=== PATIENT | male | born 1940 | race Caucasian/White ===

== ENCOUNTER → 2018-05-28 | Outpatient (CLI) | payer MEDICARE ==
[~2018-05-28] MED LIST: ALTACE5 MG PO; AMARYL4 MG PO; ASPIR 8181 MG PO; ATORVASTATIN CA20 MG PO; CALCIUM 600 +1 EAC8 PO; CO Q-10200 MG PO; ELIQUIS PO; LEVEMIR100 UNIT/1 SQ; LISINOPRIL10 MG PO; METOPROLOL SUCC50 MG PO; METOPROLOL TART50 MG PO; MULTI FOR HIM1 EACH; MULTIVITAMINS1 EAC4 PO; NEURONTIN300 MG PO; NORVASC10 MG PO; NOVOLOG 70-30 SC; OYSTER SHELL 51 EACH PO; PROCARDIA XL30 MG PO; SIMVASTATIN40 MG PO; TRADJENTA5 MG PO; VITAMIN C1000 M1 PO
--- NOTE | 2018-05-28 11:57 | Diagnostic Imaging Report ---
PROCEDURE: CT ABDOMEN AND PELVIS WITHOUT CONTRAST COMPARISON:[facility], CT, CT ABDOMEN/PELVIS WO, 10/29/2016, 13:35. INDICATIONS:CALCULUS OF KIDNEY; history of bladder cancer 10 years ago, started bleeding 2 weeks ago TECHNIQUE: Axial CT images through the abdomen and pelvis were obtained from the lung bases through the symphysis pubis without intravenous contrast. Coronal and sagittal reformations were created. DLP: 760.32 mGY-cm FINDINGS: Right kidney: Measures approximately 8.8 cm in length. The cortex is mildly lobulated. There are 2 calculi in the upper pole, the larger measuring 4 mm. No hydronephrosis. An exophytic low attenuating lesion measures 9 mm is likely a cyst. Left kidney: Measures 11 cm in length. The cortex is mildly lobulated. There is a pixel/calculus in the upper pole. No hydronephrosis. Bladder/ureters: The ureters are normal in diameter throughout their course without evidence of calculus. The bladder contains a high attenuating mass (50 Hounsfield units) in the dependent portion measuring 5.0 x 5.8 x 6.2 cm. The bladder sarkar are not thickened. There are no intraluminal calculi. Prostate gland: Measures 5.2 x 6.5 cm in the axial plane (previously, 5.3 x 6.4 cm). Seminal vesicles are normal in morphology. Lung bases: The punctate calcified granulomata in the right posterior costophrenic angle are stable. Subpleural bands in the lower lobes, right lung more severe than left are stable. There is diffuse hyperinflation suggestive of small airways disease. Valvular and coronary artery calcifications are present in the heart. Liver: Normal attenuation. No soft tissue mass. A punctate calcified granuloma is in segment 6. Spleen: Normal size and attenuation. No mass. Biliary: The gallbladder is normal. No biliary ductal dilatation. Pancreas: No mass or ductal dilatation. A tiny calcification is in the inferior head and is stable. Adrenal Glands: No mass. Vasculature: Diffuse calcifications throughout the arterial structures. The aorta with diameter. The iliac arteries are ectatic. There is a retroaortic left renal vein. GI: The stomach is normal. Small bowel and large bowel are normal in diameter and wall thickness. Postoperative changes of the right colon are stable with ileocolic anastomosis. Diverticulosis coli is present no associated inflammation. Peritoneum/Retroperitoneum: No free fluid or fluid collection. MSK: Stable degenerative changes of the spine. No compression deformities. The no lytic or blastic lesions. The soft tissues are unremarkable. CONCLUSION: 1. High attenuating intraluminal mass in the bladder is highly suggestive of blood clot. Underlying tumor is suspected. Recommend evaluation of the bladder with cystoscopy. 2. Stable prostate hypertrophy. 3. Tiny intrarenal calculi as described above. No obstructive uropathy. No CT evidence of recent stone passage. 4. Diverticulosis coli. Stable postoperative changes of the large bowel. Dictated by: Az Arzola M.D. on 05/28/2018 at 12:02 Electronically approved by: Az Arzola M.D. on 05/28/2018 at 12:02
== END ==
LOC: CT 10:43
PROVIDERS: ATTEND Urology
DX: N20.0 Calculus of kidney (principal)
CPT/HCPCS: 74176

== ENCOUNTER 2018-05-29 14:54 | Inpatient (IN) | payer MEDICARE ==
[~2018-05-29] VITALS: Ht 182.9 cm; Wt 102.7 kg
[~2018-05-29 14:54] MED LIST changes: -ATORVASTATIN CA20 MG PO; -CO Q-10200 MG PO; -ELIQUIS PO; -LISINOPRIL10 MG PO; -METOPROLOL TART50 MG PO; -NOVOLOG 70-30 SC
[2018-05-29] MEDS ORDERED: SODIUM CHLORIDE 0.9% 1000ML 1,000 ML IV STA (15:45)
[2018-05-29 15:57] LABS: CLARITY,URINE TURBID (CLEAR); COLOR,URINE RED (YELLOW); KETONES,URINE TRACE (NEGATIVE); LEUKOCYTE ESTERASE ,URINE TRACE (NEGATIVE); NITRITE,URINE POSITIVE (NEGATIVE); PROTEIN,URINE DIPSTICK 2+ (NEGATIVE)
[2018-05-29 15:58] LABS: BILIRUBIN,URINE 2+ (NEGATIVE); URINE UROBILINOGEN 1 mg/dL (0.2 - 1)
[2018-05-29 16:05] LABS: BACTERIA,URINE MODERATE /HPF; RBC,URINE >50 /HPF (0-5)
[2018-05-29 16:25] LABS: BASOPHILS % 0.5 % (0.0-1.0); EOSINOPHILS # (AUTO) 0.4 (0.0-0.4); EOSINOPHILS % 4.5 % (0.0-6.0); HEMATOCRIT 42.1 % (38.2-49.6); HEMOGLOBIN 14.4 g/dL (14.0-18.0); LYMPHOCYTES # (AUTO) 1.9 (1.0-3.2); LYMPHOCYTES % 23.2 % (18.0-39.1); MEAN CORPUSCULAR HEMOGLOBIN 31.4 pg (28-32); MEAN CORPUSCULAR HGB CONC 34.2 g/dL (31-35); MEAN CORPUSCULAR VOLUME 91.7 fL (81-99); MONOCYTES # (AUTO) 0.7 (0.2-0.8); MONOCYTES % 8.9 % (4.4-11.3); NEUTROPHILS % 62.7 % (38.7-80.0); PLATELET COUNT 192 x10e3/uL (140-360); RED BLOOD COUNT 4.59 x10e6/uL (4.3-5.7); RED CELL DISTRIBUTION WIDTH 12.9 % (11.7-14.4)
[2018-05-29 16:29] LABS: INR 1.07; PROTHROMBIN TIME 13.1 seconds (11.9-14.5)
[2018-05-29 16:30] LABS: PARTIAL THROMBOPLASTIN TIME 34.8 seconds (23.8-35.5)
[2018-05-29 16:39] LABS: ALBUMIN/GLOBULIN RATIO 1.3 (0.8-2.0); ANION GAP 12.2 mmol/L (8-16); CALCIUM 9.6 mg/dL (8.4-10.2); CREATININE, SERUM 1.82 mg/dL (0.72-1.25); POTASSIUM 4.2 mmol/L (3.5-5.1)
[2018-05-29] MEDS ORDERED: LIDOCAINE JELLY 2% 10ML URO-JET TOP ONE (16:45)
[2018-05-29] MEDS: CEFTRIAXONE SOD 1 GM VIAL IV SCH (17:00)
[2018-05-29] MEDS ORDERED: SODIUM CHLORIDE 0.9% 1000ML 1,000 ML IV SCH (17:19)
[2018-05-29] MEDS ORDERED: ATORVASTATIN CA20 MG PO (17:24)
[2018-05-29] MEDS ORDERED: METOPROLOL TART50 MG PO (17:24)
[2018-05-29] MEDS ORDERED: CO Q-10200 MG PO (17:24)
[2018-05-29] MEDS ORDERED: ELIQUIS PO (17:24)
[2018-05-29] MEDS ORDERED: LISINOPRIL10 MG PO (17:24)
[2018-05-29] MEDS ORDERED: NOVOLOG 70-30 SC ×2 (17:24)
[2018-05-29] MEDS ORDERED: MORPHINE SULFATE 2 MG/ML SYR IV PRN (17:30)
[2018-05-29] MEDS ORDERED: ONDANSETRON HCL INJ 2 MG/ML VIAL IV PRN (17:30)
[2018-05-29] MEDS ORDERED: MORPHINE SULFATE INJ 4 MG/ML INJ IV PRN (17:45)
[2018-05-29 20:00] VITALS: BP 160/88
[2018-05-29 20:45] VITALS: BP 160/88
[2018-05-29 21:00] VITALS: BP 160/88
[2018-05-30 00:20] VITALS: BP 190/86
[2018-05-30] MEDS: DEXTROSE 5%/0.45% SOD CHL 1,000 ML IV SCH ×2 (00:55→15:38)
[2018-05-30 04:20] VITALS: BP 166/86
[2018-05-30 05:28] LABS: BASOPHILS % 0.5 % (0.0-1.0); EOSINOPHILS # (AUTO) 0.2 (0.0-0.4); EOSINOPHILS % 2.3 % (0.0-6.0); HEMATOCRIT 39.1 % (38.2-49.6); HEMOGLOBIN 13.4 g/dL (14.0-18.0); LYMPHOCYTES # (AUTO) 1.5 (1.0-3.2); LYMPHOCYTES % 17.8 % (18.0-39.1); MEAN CORPUSCULAR HEMOGLOBIN 31.5 pg (28-32); MEAN CORPUSCULAR HGB CONC 34.3 g/dL (31-35); MEAN CORPUSCULAR VOLUME 91.8 fL (81-99); MONOCYTES # (AUTO) 0.7 (0.2-0.8); MONOCYTES % 8.4 % (4.4-11.3); NEUTROPHILS # (AUTO) 5.8 (2.1-6.9); NEUTROPHILS % 70.8 % (38.7-80.0); PLATELET COUNT 157 x10e3/uL (140-360); RED BLOOD COUNT 4.26 x10e6/uL (4.3-5.7); RED CELL DISTRIBUTION WIDTH 12.7 % (11.7-14.4)
[2018-05-30 05:42] LABS: ANION GAP 11.5 mmol/L (8-16); CALCIUM 8.8 mg/dL (8.4-10.2); CREATININE, SERUM 1.65 mg/dL (0.72-1.25); POTASSIUM 4.5 mmol/L (3.5-5.1)
[2018-05-30 08:16] VITALS: BP 178/83
[2018-05-30] MEDS: INSULIN ASPART 70/30 100 UNITS/ML VIAL SC SCH ×2 (09:00→21:00)
[2018-05-30] MEDS: METOPROLOL TARTRATE 50 MG TAB PO SCH ×2 (09:00→17:12)
[2018-05-30] MEDS: LISINOPRIL 10 MG TAB PO SCH (09:00)
[2018-05-30] MEDS: GABAPENTIN 300 MG CAP PO SCH ×2 (09:00→17:12)
[2018-05-30 16:56] VITALS: BP 184/89
[2018-05-30] MEDS: CEFTRIAXONE SOD 1 GM VIAL IV SCH (18:00)
[2018-05-30 20:06] VITALS: BP 189/99
[2018-05-30] MEDS: ATORVASTATIN 20 MG TAB PO SCH (21:09)
[2018-05-30] MEDS: HYDRALAZINE HCL 20 MG/ML VIAL IV PRN (23:25)
[2018-05-31] VITALS (9 sets, daily range): BP systolic 123–195; BP diastolic 63–127
[2018-05-31 04:45] LABS: BASOPHILS # (AUTO) 0.1 (0.0-0.1); BASOPHILS % 0.5 % (0.0-1.0); EOSINOPHILS # (AUTO) 0.2 (0.0-0.4); EOSINOPHILS % 2.6 % (0.0-6.0); HEMATOCRIT 40.7 % (38.2-49.6); HEMOGLOBIN 13.9 g/dL (14.0-18.0); LYMPHOCYTES # (AUTO) 1.4 (1.0-3.2); LYMPHOCYTES % 14.9 % (18.0-39.1); MEAN CORPUSCULAR HEMOGLOBIN 31.6 pg (28-32); MEAN CORPUSCULAR HGB CONC 34.2 g/dL (31-35); MEAN CORPUSCULAR VOLUME 92.5 fL (81-99); MONOCYTES # (AUTO) 0.9 (0.2-0.8); MONOCYTES % 9.8 % (4.4-11.3); NEUTROPHILS # (AUTO) 6.5 (2.1-6.9); NEUTROPHILS % 71.9 % (38.7-80.0); PLATELET COUNT 173 x10e3/uL (140-360); RED CELL DISTRIBUTION WIDTH 12.7 % (11.7-14.4)
[2018-05-31 05:05] LABS: ANION GAP 13.3 mmol/L (8-16); CALCIUM 9.1 mg/dL (8.4-10.2); CREATININE, SERUM 1.61 mg/dL (0.72-1.25); POTASSIUM 4.3 mmol/L (3.5-5.1)
[2018-05-31] MEDS: DEXTROSE 5%/0.45% SOD CHL 1,000 ML IV SCH (05:21)
[2018-05-31] MEDS: LISINOPRIL 10 MG TAB PO SCH (08:54)
[2018-05-31] MEDS: GABAPENTIN 300 MG CAP PO SCH ×2 (08:54→17:09)
[2018-05-31] MEDS: METOPROLOL TARTRATE 50 MG TAB PO SCH ×2 (08:54→17:09)
[2018-05-31] MEDS: INSULIN ASPART 70/30 100 UNITS/ML VIAL SC SCH ×2 (09:00→21:00)
[2018-05-31] MEDS: CEFTRIAXONE SOD 1 GM VIAL IV SCH (17:09)
[2018-05-31] MEDS: HYDRALAZINE HCL 20 MG/ML VIAL IV PRN (17:09)
[2018-05-31] MEDS: GENTAMICIN 80MG/NS 100 ML 100 ML IV SCH (17:26)
[2018-05-31] MEDS: ATORVASTATIN 20 MG TAB PO SCH (21:10)
[2018-06-01] VITALS (8 sets, daily range): BP systolic 121–188; BP diastolic 62–89
[2018-06-01] MEDS: DEXTROSE 5%/0.45% SOD CHL 1,000 ML IV SCH ×2 (00:41→09:29)
[2018-06-01] MEDS: GENTAMICIN 80MG/NS 100 ML 100 ML IV SCH ×2 (03:57→17:11)
[2018-06-01] MEDS: HYDRALAZINE HCL 20 MG/ML VIAL IV PRN (04:20)
[2018-06-01 06:00] LABS: BASOPHILS % 0.4 % (0.0-1.0); EOSINOPHILS # (AUTO) 0.3 (0.0-0.4); EOSINOPHILS % 2.9 % (0.0-6.0); HEMATOCRIT 40.5 % (38.2-49.6); HEMOGLOBIN 14.1 g/dL (14.0-18.0); MEAN CORPUSCULAR HEMOGLOBIN 31.8 pg (28-32); MEAN CORPUSCULAR HGB CONC 34.8 g/dL (31-35); MEAN CORPUSCULAR VOLUME 91.2 fL (81-99); MONOCYTES # (AUTO) 0.9 (0.2-0.8); MONOCYTES % 9.2 % (4.4-11.3); NEUTROPHILS # (AUTO) 6.7 (2.1-6.9); NEUTROPHILS % 67.2 % (38.7-80.0); PLATELET COUNT 188 x10e3/uL (140-360); RED BLOOD COUNT 4.44 x10e6/uL (4.3-5.7); RED CELL DISTRIBUTION WIDTH 12.8 % (11.7-14.4)
[2018-06-01 06:27] LABS: ANION GAP 13.6 mmol/L (8-16); CALCIUM 8.9 mg/dL (8.4-10.2); CREATININE, SERUM 1.57 mg/dL (0.72-1.25); POTASSIUM 3.6 mmol/L (3.5-5.1)
[2018-06-01] MEDS ORDERED: IOPAMIDOL 300MG/ML 50ML INFUS..BTL IV ONE (06:41)
[2018-06-01] MEDS ORDERED: FENTANYL CITRATE/PF 100MCG/2 ML INJ ONE ×2 (08:10→14:49)
[2018-06-01] MEDS: PHENAZOPYRIDINE HCL 100 MG TAB PO SCH ×3 (08:58→17:11)
[2018-06-01] MEDS: GABAPENTIN 300 MG CAP PO SCH ×2 (08:58→17:11)
[2018-06-01] MEDS: INSULIN ASPART 70/30 100 UNITS/ML VIAL SC SCH ×3 (08:59→18:13)
[2018-06-01] MEDS: LISINOPRIL 10 MG TAB PO SCH (09:29)
[2018-06-01] MEDS: METOPROLOL TARTRATE 50 MG TAB PO SCH ×2 (09:29→17:11)
[2018-06-01] MEDS ORDERED: LIDOCAINE HCL 2% LOCAL INJ 5 ML SDV VIAL INJ ONE (13:57)
[2018-06-01] MEDS ORDERED: PROPOFOL IV EMULSION 10 MG/ML 20 ML VIAL IV ONE (13:57)
[2018-06-01] MEDS ORDERED: ONDANSETRON HCL INJ 2 MG/ML VIAL IV ONE (13:57)
[2018-06-01] MEDS ORDERED: EPHEDRINE SULFATE INJ 50 MG/10 ML SYR IV ONE (13:57)
[2018-06-01] MEDS ORDERED: DEXAMETHASONE SOD PHOS INJ 4 MG/ML VIAL IV ONE (13:57)
[2018-06-01] MEDS ORDERED: SEVOFLURANE INHAL SOLN 250 ML PEN BTL INH ONE (13:57)
[2018-06-01] MEDS ORDERED: MIDAZOLAM HCL 2 MG/2 ML VIAL ONE (14:49)
[2018-06-01] MEDS: CEFTRIAXONE SOD 1 GM VIAL IV SCH (17:11)
[2018-06-01] MEDS ORDERED: DEXTROSE 50% SYRINGE 50 ML IV PRN (18:00)
[2018-06-01] MEDS: INSULIN REGULAR, HUMAN 100 UNIT/1 ML 3ML VIAL SQ SCH (21:04)
[2018-06-01] MEDS: ATORVASTATIN 40 MG TAB PO SCH (21:04)
[2018-06-02] VITALS (7 sets, daily range): BP systolic 118–165; BP diastolic 57–95
[2018-06-02] MEDS: GENTAMICIN 80MG/NS 100 ML 100 ML IV SCH ×2 (03:48→16:13)
[2018-06-02] MEDS: DEXTROSE 5%/0.45% SOD CHL 1,000 ML IV SCH ×2 (03:48→16:12)
[2018-06-02 04:38] LABS: BASOPHILS % 0.1 % (0.0-1.0); HEMATOCRIT 37.8 % (38.2-49.6); HEMOGLOBIN 12.6 g/dL (14.0-18.0); LYMPHOCYTES # (AUTO) 1.1 (1.0-3.2); LYMPHOCYTES % 7.4 % (18.0-39.1); MEAN CORPUSCULAR HEMOGLOBIN 31.6 pg (28-32); MEAN CORPUSCULAR HGB CONC 33.3 g/dL (31-35); MEAN CORPUSCULAR VOLUME 94.7 fL (81-99); MONOCYTES # (AUTO) 1.1 (0.2-0.8); MONOCYTES % 7.4 % (4.4-11.3); NEUTROPHILS # (AUTO) 12.8 (2.1-6.9); NEUTROPHILS % 84.6 % (38.7-80.0); PLATELET COUNT 187 x10e3/uL (140-360); RED BLOOD COUNT 3.99 x10e6/uL (4.3-5.7); RED CELL DISTRIBUTION WIDTH 12.8 % (11.7-14.4)
[2018-06-02 05:08] LABS: ALBUMIN/GLOBULIN RATIO 1.2 (0.8-2.0); ANION GAP 12.3 mmol/L (8-16); CALCIUM 8.6 mg/dL (8.4-10.2); CREATININE, SERUM 2.03 mg/dL (0.72-1.25); POTASSIUM 4.3 mmol/L (3.5-5.1)
[2018-06-02] MEDS: LISINOPRIL 10 MG TAB PO SCH (09:02)
[2018-06-02] MEDS: PHENAZOPYRIDINE HCL 100 MG TAB PO SCH ×3 (09:02→17:21)
[2018-06-02] MEDS: GABAPENTIN 300 MG CAP PO SCH ×2 (09:02→16:13)
[2018-06-02] MEDS: METOPROLOL TARTRATE 50 MG TAB PO SCH ×2 (09:03→16:13)
[2018-06-02] MEDS: INSULIN REGULAR, HUMAN 100 UNIT/1 ML 3ML VIAL SQ SCH ×4 (09:03→21:00)
[2018-06-02] MEDS: INSULIN ASPART 70/30 100 UNITS/ML VIAL SC SCH ×2 (09:03→21:00)
[2018-06-02] MEDS: CEFTRIAXONE SOD 1 GM VIAL IV SCH (16:13)
[2018-06-02] MEDS: ATORVASTATIN 40 MG TAB PO SCH (21:11)
[2018-06-03] VITALS (7 sets, daily range): BP systolic 122–173; BP diastolic 58–81
[2018-06-03] MEDS: GENTAMICIN 80MG/NS 100 ML 100 ML IV SCH ×2 (04:07→16:00)
[2018-06-03 05:46] LABS: BASOPHILS # (AUTO) 0.1 (0.0-0.1); BASOPHILS % 0.6 % (0.0-1.0); EOSINOPHILS # (AUTO) 0.3 (0.0-0.4); EOSINOPHILS % 3.3 % (0.0-6.0); HEMATOCRIT 35.9 % (38.2-49.6); HEMOGLOBIN 12.2 g/dL (14.0-18.0); LYMPHOCYTES # (AUTO) 1.6 (1.0-3.2); LYMPHOCYTES % 19.1 % (18.0-39.1); MEAN CORPUSCULAR HEMOGLOBIN 31.5 pg (28-32); MEAN CORPUSCULAR VOLUME 92.8 fL (81-99); MONOCYTES # (AUTO) 0.7 (0.2-0.8); MONOCYTES % 8.5 % (4.4-11.3); NEUTROPHILS # (AUTO) 5.7 (2.1-6.9); NEUTROPHILS % 68.1 % (38.7-80.0); PLATELET COUNT 162 x10e3/uL (140-360); RED BLOOD COUNT 3.87 x10e6/uL (4.3-5.7)
[2018-06-03] MEDS: HYDRALAZINE HCL 20 MG/ML VIAL IV PRN (06:00)
[2018-06-03 06:10] LABS: ANION GAP 14.1 mmol/L (8-16); CALCIUM 8.7 mg/dL (8.4-10.2); CREATININE, SERUM 1.78 mg/dL (0.72-1.25); POTASSIUM 4.1 mmol/L (3.5-5.1)
[2018-06-03] MEDS: INSULIN REGULAR, HUMAN 100 UNIT/1 ML 3ML VIAL SQ SCH ×4 (07:30→21:45)
[2018-06-03] MEDS: METOPROLOL TARTRATE 50 MG TAB PO SCH ×2 (08:25→17:39)
[2018-06-03] MEDS: GABAPENTIN 300 MG CAP PO SCH ×2 (08:25→17:39)
[2018-06-03] MEDS: PHENAZOPYRIDINE HCL 100 MG TAB PO SCH ×3 (08:25→17:39)
[2018-06-03] MEDS: LISINOPRIL 10 MG TAB PO SCH (08:25)
[2018-06-03] MEDS: INSULIN ASPART 70/30 100 UNITS/ML VIAL SC SCH ×2 (08:26→21:00)
[2018-06-03] MEDS: ATORVASTATIN 40 MG TAB PO SCH (17:39)
[2018-06-04] VITALS: BP 168/72
[2018-06-04] MEDS: GENTAMICIN 80MG/NS 100 ML 100 ML IV SCH (04:32)
[2018-06-04 04:47] VITALS: BP 161/85
[2018-06-04] MEDS: INSULIN REGULAR, HUMAN 100 UNIT/1 ML 3ML VIAL SQ SCH ×2 (07:30→11:30)
[2018-06-04] MEDS: INSULIN ASPART 70/30 100 UNITS/ML VIAL SC SCH (07:31)
[2018-06-04] MEDS: METOPROLOL TARTRATE 50 MG TAB PO SCH (07:55)
[2018-06-04] MEDS: GABAPENTIN 300 MG CAP PO SCH (07:55)
[2018-06-04] MEDS: PHENAZOPYRIDINE HCL 100 MG TAB PO SCH ×2 (07:56→12:45)
[2018-06-04] MEDS: LISINOPRIL 10 MG TAB PO SCH (07:56)
[2018-06-04 08:00] VITALS: BP 173/73
[2018-06-04 09:18] VITALS: BP 179/86
[2018-06-04] MEDS ORDERED: BACTRIM DS TAB1 EACH PO (14:27)
--- NOTE | 2018-06-26 21:49 | Discharge Summary ---
Patient came into hospital with hematuria, patient was started with bladder irrigation. Hypertension, patient was started on IV hydralazine. Patient has history of AFib and he was off the apixaban. Patient saw Dr. Edmondson. The patient initially was to be taken to the OR for cystoscopy and TURP. His regular medications included insulin for diabetes, atorvastatin for metoprolol for weight control and hypertension. UA C and S grew coag-negative staph. was stable. The patient did undergo cystoscopy, but no TURP. Bladder biopsies were taken. The patient has AFib, but he still held off the Eliquis as the patient was doing better. UTI, we started patient on Rocephin. The patient felt better and was finally discharged home. Patient was discharged home on Bactrim DS twice a day, and the patient will follow up with Dr. Edmondson and also by Dr. Dee, his primary care physician. White count was better. FINAL DIAGNOSES: 1. Hematuria. 2. Elevated white count. 3. Urinary tract infection. 4. Status post cystoscopy and biopsy. 5. History of atrial fibrillation, hypertension, hyperlipidemia, and diabetes mellitus. For further information, look in the chart. For medicines on discharge, look in the medical reconciliation sheet. ASHLEY MALCOLM MD Job#: [id number]
--- NOTE | 2018-07-28 15:00 | Operative Report ---
DATE OF PROCEDURE: June 01, 2018 PREOPERATIVE DIAGNOSES 1. Bladder cancer. 2. Gross hematuria. POSTOPERATIVE DIAGNOSES 1. Bladder cancer. 2. Gross hematuria. OPERATIONS PERFORMED 1. Cystourethroscopy with bilateral ureteral catheterization and retrograde ureteropyelography (separate procedure performed for the hematuria). 2. Interpretation of retrograde ureteropyelography. 3. Cystourethroscopy with directed bladder biopsies (separate procedure performed to evaluate the erythematous patch and rule out bladder cancer recurrence). ANESTHESIA: General. COMPLICATIONS: None. CLINICAL SUMMARY: Cresencio Merrill is a 77-year-old man with bladder cancer. He presented with severe gross hematuria. He has been treated with antibiotics and is brought to the operating room for evaluation of his urinary tract. He is aware of the risks of bleeding, infection, injury to adjacent structures, need for additional procedures, and elected to proceed. OPERATIVE PROCEDURE IN DETAIL: Informed consent was verified. Cresencio Merrill was properly identified and taken to the operating room, and placed on the cystoscopy table in the supine position. Anesthesia was uneventfully begun. The patient was then carefully and gently repositioned in the dorsal lithotomy position with all pressure points well-padded. His genitalia were prepared and draped in the usual sterile fashion. The 22.5-Kittitian cystoscope sheath with visual obturator in place was atraumatically inserted in the patient's urethra. It was guided down the unremarkable distal urethra through the sphincteric region that displayed some blood clotting from the prior Hines catheter. We traversed the patient's prostate bed and it was significant for obstructive BPH. We entered the patient's bladder where there was friability and heavy trabeculations, including some small diverticular formation. A ureteral catheter was used to cannulate each ureter, and retrograde ureteropyelograms were performed. Interpretation of retrograde ureteropyelography. Contrast was instilled in a retrograde fashion bilaterally. There were no tumors. No stones and no diverticula. Unobstructed drainage was observed bilaterally fluoroscopically. Directed bladder biopsies were then taken of the posterior and lateral wall erythematous mucosa. We then utilized the Bugbee electrode to fulgurate all visible erythema within the bladder. The patient's bladder was drained. The patient was uneventfully reversed from anesthesia and taken to the recovery room in stable condition. There were no complications with the procedure. He tolerated the procedure well. Explicit postop instructions were given. Will follow the patient up during his hospitalization. Of course, on a long-term basis as an outpatient. Job#: [id number] CANDACE
--- OUTSIDE RECORDS SUMMARY | 2018-07-29 23:06 | XMS REPORT | Summary of Care ---
Author Author [facility] Organization [facility] Address Unknown Phone Unavailable Encounter [facility](COMPA) [id number] Date(s): 07/01/17 - 07/07/17 [facility] [address] [place] [address]- Discharge Disposition: Home or Self Care Attending Physician: Nicki Huff MD Admitting Physician: Nicki Huff MD Vital Signs 1 2 3 Most recent to oldest [Reference Range]: 182.88 cm (07/01/17 7:32 PM) 182.88 cm (07/01/17 3:04 PM) Height 98.2 DegF (07/07/17 12:05 PM) 98.2 DegF (07/07/17 8:23 AM) 98.4 DegF (07/07/17 4:35 AM) Temperature Oral [96.4-99.1 DegF] 164/75 mmHg *HI* (07/07/17 12:05 PM) 153/71 mmHg *HI* (07/07/17 8:23 AM) 146/67 mmHg *HI* (07/07/17 4:35 AM) Blood Pressure [90-140/60-90 mmHg] 20 BRMIN (07/07/17 12:05 PM) 18 BRMIN (07/07/17 8:23 AM) 18 BRMIN (07/07/17 4:35 AM) Respiratory Rate [14-20 BRMIN] 63 bpm (07/07/17 12:05 PM) 69 bpm (07/07/17 8:23 AM) 61 bpm (07/07/17 4:35 AM) Peripheral Pulse Rate [60-100 bpm] 105.568 kg (07/02/17 6:43 PM) 106.364 kg (07/01/17 7:32 PM) 104.545 kg (07/01/17 3:04 PM) Weight 31.8 m2 (07/01/17 7:32 PM) 31.26 m2 (07/01/17 3:04 PM) Body Mass Index Problem List Condition Effective Dates Status Health Status Informant CAD - Coronary Resolved artery disease(Confirmed) Diabetes(Confirmed) Resolved Hypertension(Confirm Resolved ed) MRSA(Confirmed)1 Active Paroxysmal atrial Resolved fibrillation(Confirm ed) Renal Resolved insufficiency(Confir med) 1Problem added by Discern Expert. Allergies, Adverse Reactions, Alerts Substance Reaction Severity Status NKDA Active Medications RN-Do not give Vanc till trough drawn07/05/17@14:30 RN-Do not give Vanc till trough drawn07/05/17@14:30, Attn:KD, Drug form: MISC, Route: MISC, ONCE, 07/05/17 14:00:00 CDT, Stop date: 07/05/17 14:00:00 CDT Start Date: 07/05/17 Stop Date: 07/05/17 Status: Completed acetaminophen 650 mg, 2 tab, Route: PO, Drug form: TAB, Q4H, Dosing Weight 106.364, kg, PRN Pain 1-3/Temp > 100.4 F, Start date: 07/01/17 19:50:00 CDT, Duration: 30 day, Stop date: 07/31/17 19:49:00 CDT Notes: Do not exceed 4 gm/day. (Same as: Tylenol) Start Date: 07/01/17 Stop Date: 07/07/17 Status: Discontinued acetaminophen-hydrocodone 325 mg-5 mg oral tablet 1 tab, Route: PO, Drug Form: TAB, Dosing Weight 106.364, kg, Q4H, PRN Pain Score 4-6, Start date: 07/01/17 19:50:00 CDT, Duration: 30 day, Stop date: 07/31 19:49:00 CDT Notes: (Same as: [place] 325/5) Do not exceed 4gm/day of acetaminophen. Start Date: 07/01/17 Stop Date: 07/07/17 Status: Discontinued AMIODarone 200 mg, 1 tab, Route: PO, Drug form: TAB, BID, Dosing Weight 106.364, kg, Start date: 07/02/17 9:00:00 CDT, Duration: 30 day, Stop date: 07/31/17 17:00:00 CDT Notes: (Same as: Cordarone) Start Date: 07/02/17 Stop Date: 07/07/17 Status: Discontinued amoxicillin-clavulanate 500 mg-125 mg oral tablet 1 tab, PO, Q8H, X 14 day, # 42 tab, 0 Refill(s), Pharmacy: [id number] Start Date: 07/07/17 Stop Date: 07/21/17 Status: Ordered Bactroban 2% topical ointment 1 appl, Route: TOP, Q24H, Drug form: OINT, Start date: 07/04/17 17:00:00 CDT, Duration: 30 day, Stop date: 08/02/17 17:00:00 CDT Start Date: 07/04/17 Stop Date: 07/06/17 Status: Discontinued clindamycin 900 mg, 50 mL, Route: IVPB, Drug form: INJ, ONCE, Dosing Weight 104.545, kg, Priority: STAT, Start date: 07/01/17 15:09:00 CDT, Stop date: 07/01/17 15:09:00 CDT, ABX Indication: Skin/Soft Tissue Infection Start Date: 07/01/17 Stop Date: 07/01/17 Status: Discontinued clindamycin + sodium chloride 0.9% INJ 50 mL 600 mg, 4 mL, Route: IV, ONCE, Dosing Weight 104.545, kg, Priority: STAT, Start date: 07/01/17 17:52:00 CDT, Stop date: 07/01/17 17:52:00 CDT, ABX Indication: Skin/Soft Tissue Infection Notes: (clindamycin 150 mg/1 ml (600 mg/4 ml VL) INJ) (Same As: Cleocin) Start Date: 07/01/17 Stop Date: 07/01/17 Status: Completed Dextrose 50% Syringe 25 gm, 50 mL, Route: IVP, Drug Form: INJ, Dosing Weight 105.568, kg, PRN, PRN Blood Glucose Results, Start date: 07/03/17 9:18:00 CDT, Duration: 30 day, Stop date: 08/02/17 9:17:00 CDT Start Date: 07/03/17 Stop Date: 07/07/17 Status: Discontinued Dextrose 50% Syringe 12.5 gm, 25 mL, Route: IVP, Drug Form: INJ, Dosing Weight 105.568, kg, PRN, PRN Blood Glucose Results, Start date: 07/03/17 9:18:00 CDT, Duration: 30 day, Stop date: 08/02/17 9:17:00 CDT Start Date: 07/03/17 Stop Date: 07/07/17 Status: Discontinued docusate 100 mg, 1 cap, Route: PO, Drug form: CAP, BID, Dosing Weight 106.364, kg, Start date: 07/02/17 9:00:00 CDT, Duration: 30 day, Stop date: 07/31/17 17:00:00 CDT Notes: (Same as: Colace) (Do Not Crush) Start Date: 07/02/17 Stop Date: 07/07/17 Status: Discontinued DuoNeb inhalation solution 3 mL, Route: INHALATION, Drug Form: SOLN, Dosing Weight 104.545, kg, QID, PRN Respiratory Protocol, Start date: 07/01/17 17:27:00 CDT, Duration: 30 day, Stop date: 07/31/17 17:26:00 CDT Notes: (Same as: Duoneb) Start Date: 07/01/17 Stop Date: 07/07/17 Status: Discontinued Eliquis 2.5 mg, 1 tab, Route: PO, Drug form: TAB, BID, Dosing Weight 104.545, kg, Start date: 07/02/17 9:00:00 CDT, Duration: 30 day, Stop date: 07/31/17 17:00:00 CDT Notes: Same as: Eliquis Start Date: 07/02/17 Stop Date: 07/07/17 Status: Discontinued gabapentin 300 mg oral capsule 300 mg, 1 cap, Route: PO, Drug form: CAP, BID, Dosing Weight 104.545, kg, Start date: 07/02/17 9:00:00 CDT, Duration: 30 day, Stop date: 07/31/17 17:00:00 CDT Notes: (Same as: Neurontin) Start Date: 07/02/17 Stop Date: 07/07/17 Status: Discontinued glucagon 1 mg, Route: IM, Drug form: PDR/INJ, PRN, Dosing Weight 105.568, kg, PRN Blood Glucose Results, Start date: 07/03/17 9:18:00 CDT, Duration: 30 day, Stop date: 08/02/17 9:17:00 CDT Start Date: 07/03/17 Stop Date: 07/07/17 Status: Discontinued Humulin 70/30 See Instructions, 50 unit SUB-Q, 0 Refill(s) Start Date: 07/01/17 Status: Ordered Humulin 70/30 50 unit, 0.5 mL, Route: SUB-Q, Drug form: SUSP, QPM, Dosing Weight 106.364, kg, Start date: 07/01/17 21:00:00 CDT, Duration: 30 day, Stop date: 07/31/17 17:00: 00 CDT Notes: Roll in palms of hands gently; Do not shake vigorously. Stable for 14 days at room temperature Expires in days from Date (Same as : Humulin 70/30)WASTE: F/P - Black; E - Municipal Trash Bin Start Date: 07/01/17 Stop Date: 07/01/17 Status: Discontinued Humulin 70/30 60 unit, 0.6 mL, Route: SUB-Q, Drug form: SUSP, QAM, Dosing Weight 106.364, kg, Start date: 07/02/17 9:00:00 CDT, Duration: 30 day, Stop date: 07/31/17 9:00:00 CDT Notes: Roll in palms of hands gently; Do not shake vigorously. Stable for 14 days at room temperature Expires in days from Date (Same as : Humulin 70/30)WASTE: F/P - Black; E - Municipal Trash Bin Start Date: 07/02/17 Stop Date: 07/01/17 Status: Canceled Humulin 70/30 30 unit, 0.3 mL, Route: SUB-Q, Drug form: SUSP, QPM, Dosing Weight 106.364, kg, Start date: 07/02/17 17:00:00 CDT, Duration: 30 day, Stop date: 07/31/17 17:00: 00 CDT Notes: Roll in palms of hands gently; Do not shake vigorously. Stable for 14 days at room temperature Expires in days from Date (Same as : Humulin 70/30)WASTE: F/P - Black; E - Municipal Trash Bin Start Date: 07/02/17 Stop Date: 07/07/17 Status: Discontinued Humulin 70/30 See Instructions, 60 unit SUB-Q, 0 Refill(s) Start Date: 07/01/17 Status: Ordered Humulin 70/30 40 unit, 0.4 mL, Route: SUB-Q, Drug form: SUSP, QAM, Dosing Weight 106.364, kg, Start date: 07/02/17 9:00:00 CDT, Duration: 30 day, Stop date: 07/31/17 9:00:00 CDT Notes: Roll in palms of hands gently; Do not shake vigorously. Stable for 14 days at room temperature Expires in days from Date (Same as : Humulin 70/30)WASTE: F/P - Black; E - Municipal Trash Bin Start Date: 07/02/17 Stop Date: 07/07/17 Status: Discontinued insulin lispro 4 unit, 0.04 mL, Route: SUB-Q, Drug form: SOLN, TID-Before Meals, Dosing Weight 105.568, kg, PRN Blood Glucose Results, Start date: 07/03/17 9:18:00 CDT, Duration: 30 day, Stop date: 08/02/17 9:17:00 CDT Notes: Roll in palms of hands gently; Do not shake `vigorously. (Same as: Humalog )"Single Patient Use Only "WASTE: F/P - Black; E - Municipal Trash Bin Stable for 28 days at room temperature.Expires in days from Date Start Date: 07/03/17 Stop Date: 07/07/17 Status: Discontinued insulin lispro 2 unit, 0.02 mL, Route: SUB-Q, Drug form: SOLN, TID-Before Meals, Dosing Weight 105.568, kg, PRN Blood Glucose Results, Start date: 07/03/17 9:18:00 CDT, Duration: 30 day, Stop date: 08/02/17 9:17:00 CDT Notes: Roll in palms of hands gently; Do not shake `vigorously. (Same as: Humalog )"Single Patient Use Only "WASTE: F/P - Black; E - Municipal Trash Bin Stable for 28 days at room temperature.Expires in days from Date Start Date: 07/03/17 Stop Date: 07/07/17 Status: Discontinued insulin lispro 6 unit, 0.06 mL, Route: SUB-Q, Drug form: SOLN, TID-Before Meals, Dosing Weight 105.568, kg, PRN Blood Glucose Results, Start date: 07/03/17 9:18:00 CDT, Duration: 30 day, Stop date: 08/02/17 9:17:00 CDT Notes: Roll in palms of hands gently; Do not shake `vigorously. (Same as: Humalog )"Single Patient Use Only "WASTE: F/P - Black; E - Municipal Trash Bin Stable for 28 days at room temperature.Expires in days from Date Start Date: 07/03/17 Stop Date: 07/07/17 Status: Discontinued insulin lispro 8 unit, 0.08 mL, Route: SUB-Q, Drug form: SOLN, TID-Before Meals, Dosing Weight 105.568, kg, PRN Blood Glucose Results, Start date: 07/03/17 9:18:00 CDT, Duration: 30 day, Stop date: 08/02/17 9:17:00 CDT Notes: Roll in palms of hands gently; Do not shake `vigorously. (Same as: Humalog )"Single Patient Use Only "WASTE: F/P - Black; E - Municipal Trash Bin Stable for 28 days at room temperature.Expires in days from Date Start Date: 07/03/17 Stop Date: 07/07/17 Status: Discontinued insulin lispro 10 unit, 0.1 mL, Route: SUB-Q, Drug form: SOLN, TID-Before Meals, Dosing Weight 105.568, kg, PRN Blood Glucose Results, Start date: 07/03/17 9:18:00 CDT, Duration: 30 day, Stop date: 08/02/17 9:17:00 CDT Notes: Roll in palms of hands gently; Do not shake `vigorously. (Same as: Humalog )"Single Patient Use Only "WASTE: F/P - Black; E - Municipal Trash Bin Stable for 28 days at room temperature.Expires in days from Date Start Date: 07/03/17 Stop Date: 07/07/17 Status: Discontinued labetalol 10 mg, 2 mL, Route: IVP, Drug form: INJ, Q4H, Dosing Weight 104.545, kg, PRN Hypertension, systolic greater than 160, Start date: 07/01/17 19:07:00 CDT, Duration: 30 day, Stop date: 07/31/17 19:06:00 CDT Notes: (Same as: Normodyne, Trandate)Push over 2 minutes Give bolus over 2-3 minutes. Start Date: 07/01/17 Stop Date: 07/07/17 Status: Discontinued lidocaine 2% injectable solution 5 mL, Route: IV, Drug Form: SOLN, Dosing Weight 105.568, kg, ONCE, NOW, Start date: 07/06/17 13:38:00 CDT, Stop date: 07/06/17 13:38:00 CDT Notes: Preservative free. (Same as: Xylocaine-MPF) Start Date: 07/06/17 Stop Date: 07/06/17 Status: Completed Lipitor 40 mg, 1 tab, Route: PO, Drug form: TAB, Bedtime, Dosing Weight 104.545, kg, Start date: 07/01/17 21:00:00 CDT, Duration: 30 day, Stop date: 07/30/17 21:00: 00 CDT Notes: (Same as: Lipitor) Start Date: 07/01/17 Stop Date: 07/07/17 Status: Discontinued lisinopril 10 mg, 2 tab, Route: PO, Drug form: TAB, Daily, Dosing Weight 106.364, kg, Start date: 07/02/17 9:00:00 CDT, Duration: 30 day, Stop date: 07/31/17 9:00:00 CDT Notes: (Same as: Prinivil, Zestril) Start Date: 07/02/17 Stop Date: 07/07/17 Status: Discontinued Lopressor 50 mg, 1 tab, Route: PO, Drug form: TAB, Q12H, Dosing Weight 106.364, kg, Start date: 07/01/17 21:00:00 CDT, Duration: 30 day, Stop date: 07/31/17 9:00:00 CDT Notes: (Same as: Lopressor) Start Date: 07/01/17 Stop Date: 07/07/17 Status: Discontinued ondansetron 4 mg, 2 mL, Route: IVP, Drug form: INJ, Q6H, Dosing Weight 106.364, kg, PRN Nausea & Vomiting, Start date: 07/01/17 19:50:00 CDT, Duration: 30 day, Stop date: 07/31/17 19:49:00 CDT Notes: (Same as: Zofran) MEDICATION WASTE Product Size: 4 mgProduct Wasted: ___ mg Start Date: 07/01/17 Stop Date: 07/07/17 Status: Discontinued RN please don't give VANCO dose RN please don't give VANCO dose, before TROUGH level is DRAWN, Drug form: MISC, Route: MISC, Continuous, 07/03/17 14:00:00 CDT, Duration: 1 hr, Stop date: 07/03 14:59:00 CDT Start Date: 07/03/17 Stop Date: 07/03/17 Status: Completed vancomycin 2.5 gm, 500 mL, Route: IV, Drug form: SOLN, ONCE, Dosing Weight 104.545, kg, Priority: STAT, Start date: 07/01/17 18:16:00 CDT, Stop date: 07/01/17 18:16:00 CDT, ABX Indication: Skin/Soft Tissue Infection Notes: TIME CRITICAL MEDICATIONSame as: Vancocin Infusion rate< 1000 mg: infuse over 1 [id number] - 1500 mg: infuse over 1.5 [id number] - 2000 mg: infuse over 2 hours> 2001 mg: infuse over 2.5 hours Start Date: 07/01/17 Stop Date: 07/01/17 Status: Completed vancomycin 1.25 gm, 250 mL, Route: IV, Drug form: INJ, [id number], Dosing Weight 104.545, kg, Start date: 07/01/17 18:30:00 CDT, Duration: 30 day, Stop date: 07/30/17 18:30: 00 CDT, ABX Indication: Skin/Soft Tissue Infection Notes: TIME CRITICAL MEDICATIONSame as: Vancocin-NS (premixed)Infusion rate< 1000 mg: infuse over 1 [id number] - 1500 mg: infuse over 1.5 [id number] - 2000 mg: infuse over 2 hours> 2001 mg: infuse over 2.5 hours Start Date: 07/01/17 Stop Date: 07/01/17 Status: Canceled vancomycin + sodium chloride 0.9% 250 mL INJ (for IV set) 250 mL 750 mg, Route: IVPB, [id number], Dosing Weight 104.545, kg, Start date: 07/02/17 8: 00:00 CDT, Duration: 30 day, Stop date: 08/01/17 3:00:00 CDT, ABX Indication: Skin/Soft Tissue Infection Notes: TIME CRITICAL MEDICATION(Same As: Vancocin)Infusion rate< 1000 mg: infuse over 1 [id number] - 1500 mg: infuse over 1.5 [id number] - 2000 mg: infuse over 2 hours> 2001 mg: infuse over 2.5 hours MEDICATION WASTE Product Size: 1000 mgProduct Wasted: ___ mg Start Date: 07/02/17 Stop Date: 07/03/17 Status: Discontinued vancomycin + sodium chloride 0.9% INJ 100 mL 500 mg, Route: IVPB, [id number], Start date: 07/04/17 3:00:00 CDT, Duration: 30 day , Stop date: 08/02/17 15:00:00 CDT, ABX Indication: Skin/Soft Tissue Infection Notes: TIME CRITICAL MEDICATION(Same As: Vancocin) Start Date: 07/04/17 Stop Date: 07/07/17 Status: Discontinued Vancomycin Pharmacy Dosing 1 ea, Route: MISC, ONCALL, Dosing Weight 104.545, kg, Priority: NOW, Start date : 07/01/17 17:28:00 CDT, Duration: 1 doses or times, Pharmacy to dose, ABX Indication: Skin/Soft Tissue Infection Start Date: 07/01/17 Stop Date: 07/01/17 Status: Discontinued Zosyn + sodium chloride 0.9% INJ 100 mL 3.375 gm, Route: IVPB, [id number], Dosing Weight 104.545, kg, CrCl >=20 ml/min infuse over 4 hours, Priority: NOW, Start date: 07/01/17 17:28:00 CDT, Duration : 30 day, Stop date: 07/31/17 9:28:00 CDT, ABX Indication: Skin/Soft Tissue Infection Notes: (Same as: Zosyn)Dosing based on Piperacillin component MEDICATION WASTE Product Size: 3375 mgProduct Wasted: ___ mg Start Date: 07/01/17 Stop Date: 07/07/17 Status: Discontinued Results ELECTROLYTES 1 2 3 Most recent to oldest [Reference Range]: 142 mEq/L (07/07/17 4:17 AM) 140 mEq/L (07/04/17 4:58 AM) 140 mEq/L (07/03/17 4:32 AM) Sodium Lvl [135-145 mEq/L] 4.4 mEq/L (07/07/17 4:17 AM) 4.2 mEq/L (07/04/17 4:58 AM) 4.6 mEq/L (07/03/17 4:32 AM) Potassium Lvl [3.5-5.1 mEq/L] 108 mEq/L (07/07/17 4:17 AM) 111 mEq/L *HI* (07/04/17 4:58 AM) 108 mEq/L (07/03/17 4:32 AM) Chloride Lvl [95-109 mEq/L] 24 mEq/L (07/07/17 4:17 AM) 21 mEq/L *LOW* (07/04/17 4:58 AM) 23 mEq/L *LOW* (07/03/17 4:32 AM) CO2 [24-32 mEq/L] 14.4 mEq/L (07/07/17 4:17 AM) 12.2 mEq/L (07/04/17 4:58 AM) 13.6 mEq/L (07/03/17 4:32 AM) AGAP [10.0-20.0 mEq/L] CHEM PANEL 1 2 3 Most recent to oldest [Reference Range]: 2.10 mg/dL *HI* (07/07/17 4:17 AM) 1.90 mg/dL *HI* (07/04/17 4:58 AM) 1.90 mg/dL *HI* (07/03/17 4:32 AM) Creatinine Lvl [0.50-1.40 mg/dL] 30 mL/min/1.73m2 1 *NA* (07/07/17 4:17 AM) 34 mL/min/1.73m2 2 *NA* (07/04/17 4:58 AM) 34 mL/min/1.73m2 3 *NA* (07/03/17 4:32 AM) eGFR 26 mg/dL *HI* (07/07/17 4:17 AM) 25 mg/dL *HI* (07/04/17 4:58 AM) 31 mg/dL *HI* (07/03/17 4:32 AM) BUN [7-22 mg/dL] 16 (07/01/17 4:06 PM) B/C Ratio [6-25] 118 mg/dL *HI* (07/07/17 4:17 AM) 69 mg/dL *LOW* (07/04/17 4:58 AM) 160 mg/dL *HI* (07/03/17 4:32 AM) Glucose Lvl [70-99 mg/dL] 7.6 g/dL (07/01/17 4:06 PM) Total Protein [6.4-8.4 g/dL] 3.8 g/dL (07/01/17 4:06 PM) Albumin Lvl [3.5-5.0 g/dL] 3.8 g/dL (07/01/17 4:06 PM) Globulin [2.7-4.2 g/dL] 1.0 (07/01/17 4:06 PM) A/G Ratio [0.7-1.6] 8.5 mg/dL (07/07/17 4:17 AM) 8.5 mg/dL (07/04/17 4:58 AM) 8.3 mg/dL *LOW* (07/03/17 4:32 AM) Calcium Lvl [8.5-10.5 mg/dL] 51 unit/L (07/01/17 4:06 PM) ALT [0-65 unit/L] 38 unit/L *HI* (07/01/17 4:06 PM) AST [0-37 unit/L] 80 unit/L (07/01/17 4:06 PM) Alk Phos [39-136 unit/L] 1.1 mg/dL (07/01/17 4:06 PM) Bili Total [0.2-1.3 mg/dL] 1.7 mMol/L (07/01/17 4:06 PM) Lactic Acid Lvl [0.5-2.2 mMol/L] 0.09 ng/mL (07/07/17 4:17 AM) <0.05 ng/mL 4 (07/02/17 4:45 AM) Procalcitonin Lvl [0.00-0.10 ng/mL] 1Result Comment: The eGFR is calculated using the CKD-EPI formula. In most young , healthy individuals the eGFR will be >90 mL/min/1.73m2. The eGFR declines with age. An eGFR of 60-89 may be normal in some populations, particularly the elderly, for whom the CKD-EPI formula has not been extensively validated. Use of the eGFR is not recommended in the following populations: Individuals with unstable creatinine concentrations, including patients and those with serious co-morbid conditions. Patients with extremes in muscle mass or diet. The data above are obtained from the National Kidney Disease Education Program ( NKDEP) which additionally recommends that when the eGFR is used in patients with extremes of body mass index for purposes of drug dosing, the eGFR should be multiplied by the estimated BMI. 2Result Comment: The eGFR is calculated using the CKD-EPI formula. In most young , healthy individuals the eGFR will be >90 mL/min/1.73m2. The eGFR declines with age. An eGFR of 60-89 may be normal in some populations, particularly the elderly, for whom the CKD-EPI formula has not been extensively validated. Use of the eGFR is not recommended in the following populations: Individuals with unstable creatinine concentrations, including patients and those with serious co-morbid conditions. Patients with extremes in muscle mass or diet. The data above are obtained from the National Kidney Disease Education Program ( NKDEP) which additionally recommends that when the eGFR is used in patients with extremes of body mass index for purposes of drug dosing, the eGFR should be multiplied by the estimated BMI. 3Result Comment: The eGFR is calculated using the CKD-EPI formula. In most young , healthy individuals the eGFR will be >90 mL/min/1.73m2. The eGFR declines with age. An eGFR of 60-89 may be normal in some populations, particularly the elderly, for whom the CKD-EPI formula has not been extensively validated. Use of the eGFR is not recommended in the following populations: Individuals with unstable creatinine concentrations, including patients and those with serious co-morbid conditions. Patients with extremes in muscle mass or diet. The data above are obtained from the National Kidney Disease Education Program ( NKDEP) which additionally recommends that when the eGFR is used in patients with extremes of body mass index for purposes of drug dosing, the eGFR should be multiplied by the estimated BMI. 4Result Comment: Corrected report called to Alexis Pelayo. 07/03/2017 08:08 PRIETO/NF TOXICOLOGY 1 2 3 Most recent to oldest [Reference Range]: 0 *NA* (07/05/17 2:54 PM) 1500 *NA* (07/03/17 2:05 PM) [facility] 15[facility]8 [facility]/ml *NA* (07/05/17 2:54 PM) 17.3 ug/ml *NA* (07/03/17 2:05 PM) Vanco Tr HEMATOLOGY 1 2 3 Most recent to oldest [Reference Range]: 10.6 K/CMM *HI* (07/07/17 4:17 AM) 11.5 K/CMM *HI* (07/04/17 4:58 AM) 11.3 K/CMM *HI* (07/03/17 4:32 AM) WBC [3.7-10.4 K/CMM] 3.85 M/CMM *LOW* (07/07/17 4:17 AM) 3.88 M/CMM *LOW* (07/04/17 4:58 AM) 3.78 M/CMM *LOW* (07/03/17 4:32 AM) RBC [4.70-6.10 M/CMM] 12.2 g/dL *LOW* (07/07/17 4:17 AM) 12.2 g/dL *LOW* (07/04/17 4:58 AM) 12.0 g/dL *LOW* (07/03/17 4:32 AM) Hgb [14.0-18.0 g/dL] 35.8 % *LOW* (07/07/17 4:17 AM) 36.7 % *LOW* (07/04/17 4:58 AM) 35.3 % *LOW* (07/03/17 4:32 AM) Hct [42.0-54.0 %] 93.1 fL (07/07/17 4:17 AM) 94.5 fL *HI* (07/04/17 4:58 AM) 93.2 fL (07/03/17 4:32 AM) MCV [80.0-94.0 fL] 31.6 pg *HI* (07/07/17 4:17 AM) 31.5 pg *HI* (07/04/17 4:58 AM) 31.7 pg *HI* (07/03/17 4:32 AM) MCH [27.0-31.0 pg] 33.9 g/dL (07/07/17 4:17 AM) 33.3 g/dL (07/04/17 4:58 AM) 34.0 g/dL (07/03/17 4:32 AM) MCHC [32.0-36.0 g/dL] 13.4 % (07/07/17 4:17 AM) 13.4 % (07/04/17 4:58 AM) 13.7 % (07/03/17 4:32 AM) RDW [11.5-14.5 %] 212 K/CMM (07/07/17 4:17 AM) 190 K/CMM (07/04/17 4:58 AM) 176 K/CMM (07/03/17 4:32 AM) Platelet [133-450 K/CMM] 8.4 fL (07/07/17 4:17 AM) 8.4 fL (07/04/17 4:58 AM) 8.5 fL (07/03/17 4:32 AM) MPV [7.4-10.4 fL] 81.8 % *HI* (07/01/17 4:06 PM) Segs [45.0-75.0 %] 7.7 % *LOW* (07/01/17 4:06 PM) Lymphocytes [20.0-40.0 %] 9.6 % (07/01/17 4:06 PM) Monocytes [2.0-12.0 %] 0.3 % (07/01/17 4:06 PM) Eosinophils [0.0-4.0 %] 0.6 % (07/01/17 4:06 PM) Basophils [0.0-1.0 %] 13.3 K/CMM *HI* (07/01/17 4:06 PM) Segs-Bands # [1.5-8.1 K/CMM] 1.3 K/CMM (07/01/17 4:06 PM) Lymphocytes # [1.0-5.5 K/CMM] 1.6 K/CMM *HI* (07/01/17 4:06 PM) Monocytes # [0.0-0.8 K/CMM] 0.1 K/CMM (07/01/17 4:06 PM) Basophils # [0.0-0.2 K/CMM] Immunizations Given and Recorded Vaccine Date Status Refusal Reason tetanus-diphtheria toxoids 07/01/17 Given Procedures No data available for this section Social History Social History Type Response Alcohol Past, Frequency: 1-2 times per month. Smoking Status Former smoker; Type: Pipe; Exposure to Tobacco Smoke None; Cigarette Smoking Last 365 Days No; Reg Smoking Cessation Counseling Yes Assessment and Plan Extracted from: Title: Clinical Document Author: Eliezer Copeland Date: 07/07/17 DPM Podiatric Surgery Progress Note Eliezer Copeland DPM [facility] SUBJECTIVE: Pt seen at bedside; son also present; pain controlled MEDICATIONS: Scheduled Meds (11):AMIODarone, apixaban (Eliquis), atorvastatin (Lipitor), docusate, gabapentin (gabapentin 300 mg oral capsule), insulin isophane-insulin regular (Humulin 70/30), insulin isophane-insulin regular (Humulin 70/30), lisinopril, metoprolol (Lopressor), piperacillin-tazobactam + sodium chloride 0.9% INJ 100 mL (Zosyn + sodium chloride 0.9% INJ 100 mL), vancomycin + sodium chloride 0.9% INJ 100 mL Unscheduled Meds: None PRN Meds (13):Dextrose 50% in Water IV (Dextrose 50% Syringe), Dextrose 50% in Water IV (Dextrose 50% Syringe), acetaminophen-hydrocodone (acetaminophen- hydrocodone 325 mg-5 mg oral tablet), acetaminophen, albuterol-ipratropium ( DuoNeb inhalation solution), glucagon, insulin lispro, insulin lispro, insulin lispro, insulin lispro, insulin lispro, labetalol, ondansetron One Time Meds (1):(Completed) lidocaine (lidocaine 2% injectable solution) Continuous Infusions: None ALLERGIES: Allergies (1) ActiveReaction NKDANone Documented OBJECTIVE: AAO x 3 in NAD;Dorsalis pedis, posterior tibial pulses are 1/4 Capillary fill time less than 3 seconds. Skin temperature is warm to touch, proximal to distal. Erythema and edema extending from the distal aspect of the right foot to the mid foot(receding). Puncture wound along the plantar aspect of the right foot submetatarsal with some eschar. No active discharge. Mild pain along the plantar aspect of the right foot. No fluctuance. Light touch protective sensation is slightly reduced. Nails are mycotic elongated, dystrophic with subungual debris. Vitals and Temp: VitalsTmp(F)[id number] 07/07 12:[id number]--- 07/07 08:[id number]--- 07/07 04:[id number]--- 07/07 03:[id number]--- 07/07 00:[id number]--- 24 Hr Tmax: 98.8F (37.11c) at 07/07 00:51Vital Signs are the last 5 in the past 48 hours. Labs (Last four charted values) WBC H 10.6(JUL 07)H 11.5(JUN 08)H 11.3(JUN 07)H 11.8(JUN 06) Hgb L 12.2(JUN 11)L 12.2(JUN 08)L 12.0(JUN 07)L 12.4(JUN 06) Hct L 35.8(JUN 11)L 36.7(JUN 08)L 35.3(JUN 07)L 37.3(JUN 06) Plt 212(JUL 07)190(JUN 08)176(JUL 03)182(JUL 02) Na 142(JUN 11)140(JUN 08)140(JUL 03)141(JUL 02) K 4.4(JUL 07)4.2(JUN 08)4.6(JUL 03)4.9(JUL 02) CO2 24(JUL 07)L 21(JUN 08)L 23(JUL 03)24(JUN 06) Cl 108(JUN 11)H 111(JUN 08)108(JUL 03)108(JUL 02) Cr H 2.10(JUL 07)H 1.90(JUL 04)H 1.90(JUL 03)H 2.20(JUL 02) BUN H 26(JUL 07)H 25(JUN 08)H 31(JUL 03)H 36(JUN 06) Glucose Random H 118(JUL 07)L 69(JUN 08)H 160(JUL 03)H 103(JUN 06) Ca 8.5(JUL 07)8.5(JUL 04)L 8.3(JUL 03)9.2(JUL 02) ASSESSMENT: 1. Infected puncture wound right foot. 2. Cellulitis/abscess right foot. 3. Diabetes mellitus with peripheral neuropathy. 4. Peripheral vascular disease. PLAN: DISCUSSED WITH PATIENT AND SON CLINICALLY IMPROVING OKAY TO D/C HOME ON PO AUGMENTIN TAUGHT PTS SON DAILY WOUND CARE SURGICAL SHOE FOLLOWUP [address] HUFF
--- OUTSIDE RECORDS SUMMARY | 2018-07-29 23:06 | XMS REPORT | Summary of Care ---
Author Author DEMARIO De Los Santos, COLEEN Organization Unknown Address Unknown Phone Unavailable Care Team Providers Care Rehab Services Aide Name Role Phone COLEEN HANKS M.D. Unavailable Unavailable PHIL BACA M.D. Unavailable Unavailable NAV YIN MD Unavailable Unavailable Unavailable Unavailable Functional Status Name Dates Details Functional status health issues are not documented Status: Name Dates Details Cognitive status health issues are not documented Status: Problems Name Dates Details Closed displaced fracture of fifth metatarsal bone of left foot, initial encounter (825.25, S92.352A) Status: Active Carotid bruit (785.9, R09.89) Status: Active Chronic renal insufficiency (585.9, N18.9) Status: Active Coronary artery disease (414.00, I25.10) Status: Active Diabetes mellitus (250.00, E11.9) Status: Active Essential (primary) hypertension (401.9, I10) Status: Active Hyperlipidemia (272.4, E78.5) Status: Active 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 * Start : 15-Jan-2012 Active Lisinopril 20 MG Oral Tablet TAKE 1 TABLET DAILY. * Quantity: 90 Refills: 1 COLEEN HANKS M.D. * Start : 16-Mar-2014 Active Lipitor 40 MG Oral Tablet TAKE 1 TABLET BEDTIME * Quantity: 30 Refills: 3 * Start : 16-Mar-2014 Active Gabapentin 300 MG Oral Capsule pt takes morning and night * Quantity: 21 Refills: 0 * Start : 16-Mar-2014 Active Co Q-10 200 MG Oral Capsule TAKE 1 CAPSULE DAILY. * Refills: 0 * Start : 17-Apr-2015 Active Multivitamin Adult Oral Tablet TAKE 1 TABLET DAILY. * Refills: 0 * Start : 23-Feb-2016 Active Eliquis 2.5 MG Oral Tablet TAKE 1 TABLET BY MOUTH TWICE DAILY * Quantity: 180 Refills: 0 COLEEN HANKS M.D. * Start : 04-May-2018 Active Torsemide 10 MG Oral Tablet TAKE 1 TABLET NEEDED. * Quantity: 90 Refills: 0 COLEEN HANKS M.D. * Start : 14-May-2016 Active HumaLOG 100 UNIT/ML Subcutaneous Solution Cartridge INJECT SUBCUTANEOUSLY DIRECTED. * Refills: 0 COLEEN HANKS M.D. * Start : 21-Feb-2017 Active 3 ML Cartridge NIFEdipine ER 30 MG Oral Tablet Extended Release 24 Hour TAKE 1 TABLET NEEDED. * Quantity: 90 Refills: 1 COLEEN HANKS M.D. 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) Status: Resolved History of Perforated diverticulum of large intestine (562.10, K57.20) Status: Resolved History of peripheral vascular disease (V12.59, Z86.79) Status: Resolved Procedures Procedure Dates Details History of Tonsillectomy Completed History of Back Surgery Completed History of Bladder Surgery Completed History of Cystoscopy With Insertion Of Ureteral Stent Completed Immunization Name Dates Details Immunizations not documented Family History Name Dates Details Family history of Heart Disease (V17.49) Status: Active Name Dates Details Family history of Cervical Cancer Status: Active Social History Name Dates Details - Status: Name Dates Details Former smoker Vital Signs Date Test Result Details No Known Vitals to report Results Date Description Value Details Results not documented Plan of Care Name Dates Details Planned Observations Planned Goals not documented Planned Encounters Appointment; COLEEN HANKS M.D. On: 16-Jul-2018 9:20 Interventions Provided Medication Changes* Eliquis 2.5 MG Oral Tablet - Renew Instructions Name Dates Details Instructions not documented Encounters Appointment; COLEEN HANKS M.D. Encounter Diagnosis: Problem not documented On: 14-Jun-2016 9:15 Appointment; GAMALIEL ALTAMIRANO M.D. Encounter Diagnosis: Problem not documented On: 30-Sep-2016 10:45 Appointment; COLEEN HANKS M.D. Encounter Diagnosis: Problem not documented On: 15-Oct-2016 8:30 Appointment; GAMALIEL ALTAMIRANO M.D. Encounter Diagnosis: Problem not documented On: 30-Oct-2016 8:30 Appointment; GAMALIEL ALTAMIRANO M.D. Encounter Diagnosis: Problem not documented On: 27-Nov-2016 8:30 Appointment; GAMALIEL ALTAMIRANO M.D. Encounter Diagnosis: Problem not documented On: 11-Dec-2016 8:45 Appointment; COLEEN HANKS M.D. Encounter Diagnosis: Problem not documented On: 21-Feb-2017 9:10 Appointment; COLEEN HANKS M.D. Encounter Diagnosis: Problem not documented On: 10-Mar-2017 11:00 Appointment; COLEEN HANKS M.D. Encounter Diagnosis: Problem not documented On: 25-Jul-2017 8:30 Appointment; COLEEN HANKS M.D. Encounter Diagnosis: Problem not documented On: 22-Sep-2017 8:50 Appointment; COLEEN HANKS M.D. Encounter Diagnosis: Problem not documented On: 30-Oct-2017 9:10 Appointment; COLEEN HANKS M.D. Encounter Diagnosis: Problem not documented On: 27-Feb-2018 9:00 Appointment; COLEEN HANKS M.D. Encounter Diagnosis: Problem not documented On: 18-Mar-2018 9:00
--- OUTSIDE RECORDS SUMMARY | 2018-07-29 23:06 | XMS REPORT ---
Author Author [facility] Address Unknown Phone Unavailable Care Team Providers Care Telephone Order Supervisor Name Role Phone QAMAR PINO Unavailable Unavailable Problems This patient has no known problems. Allergies, Adverse Reactions, Alerts This patient has no known allergies or adverse reactions. Medications This patient has no known medications. Results Test Description Test Time Test Comments Text Results Atomic Results Result Comments CT ABDOMEN/PELVIS WO 2018-05-28 12:02:00 [place] [id number] Patient Name: ELEANOR LEIGH MR #: [id number] : 1940 Age/Sex: 77/M Req #: [id number] [facility] Physician: Ordered by: QAMAR PINO MD Report #: [id number] Location: CT Room/Bed: Procedure: [id number] CT/CT ABDOMEN/PELVIS WO Exam Date: 05/28/18 Exam Time: 1100 REPORT STATUS: Signed PROCEDURE: CT ABDOMEN AND PELVIS WITHOUT CONTRAST COMPARISON: [facility] , CT, CT ABDOMEN/PELVIS WO, 10/29/2016, 13:35. INDICATIONS: CALCULUS OF KIDNEY; history of bladder cancer 10 years ago, started bleeding 2 weeks ago TECHNIQUE: Axial CT images through the abdomen and pelvis were obtained from the lung bases through the symphysis pubis without intravenous contrast. Coronal and sagittal reformations were created. DLP: 760.32 mGY-cm FINDINGS: Right kidney: Measures approximately 8.8 cm in length. The cortex is mildly lobulated. There are 2 calculi in the upper pole , the larger measuring 4 mm. No hydronephrosis. An exophytic low attenuating lesion measures 9 mm is likely a cyst. Left kidney: Measures 11 cm in length. The cortex is mildly lobulated. There is a pixel/calculus in the upper pole. No hydronephrosis. Bladder/ureters: The ureters are normal in diameter throughout their course without evidence of calculus. The bladder contains a high attenuating mass (50 Hounsfield units) in the dependent portion measuring 5.0 x 5.8 x 6.2 cm. The bladder sarkar are not thickened. There are no intraluminal calculi. Prostate gland: Measures 5.2 x 6.5 cm in the axial plane (previously, 5.3 x 6.4 cm). Seminal vesicles are normal in morphology. Lung bases: The punctate calcified granulomata in the right posterior costophrenic angle are stable. Subpleural bands in the lower lobes, right lung more severe than left are stable. There is diffuse hyperinflation suggestive of small airways disease. Valvular and coronary artery calcifications are present in the heart. Liver: Normal attenuation. No soft tissue mass. A punctate calcified granuloma is in segment 6. Spleen: Normal size and attenuation. No mass. Biliary: The gallbladder is normal. No biliary ductal dilatation. Pancreas: No mass or ductal dilatation. A tiny calcification is in the inferior head and is stable. Adrenal Glands: No mass. Vasculature: Diffuse calcifications throughout the arterial structures. The aorta with diameter. The iliac arteries are ectatic. There is a retroaortic left renal vein. GI: The stomach is normal. Small bowel and large bowel are normal in diameter and wall thickness. Postoperative changes of the right colon are stable with ileocolic anastomosis. Diverticulosis coli is present no associated inflammation. Peritoneum/Retroperitoneum: No free fluid or fluid collection. MSK: Stable degenerative changes of the spine. No compression deformities. The no lytic or blastic lesions. The soft tissues are unremarkable. CONCLUSION: 1. High attenuating intraluminal mass in the bladder is highly suggestive of blood clot. Underlying tumor is suspected. Recommend evaluation of the bladder with cystoscopy. 2. Stable prostate hypertrophy. 3. Tiny intrarenal calculi as described above. No obstructive uropathy. No CT evidence of recent stone passage. 4. Diverticulosis coli. Stable postoperative changes of the large bowel. Dictated by: Nicholas Arzola M.D. on 05/28/2018 at 12: 02 Electronically approved by: Nicholas Arzola M.D. on 05/28/2018 at 12:02 Dictated By: NICHOLAS ARZOLA MD [id number] Transcribed By: NEPTALI on 05/28/181201 COPY TO: QAMAR PINO MD
== END 2018-06-04 14:48 | disposition home or self-care (01) | DRG 670 ==
LOC: ER 14:54 → ERHOLD 17:39 → MED/SURG2 18:28 → OBSVTOIN 06-01 14:55
PROVIDERS: ADMIT Family Medicine; ATTEND Family Medicine
PROC: 0TBB8ZX Excision of Bladder, Via Natural or Artificial Opening Endoscopic, Diagnostic (ICD-10-PCS; principal; 2018-06-01 06:46)
DX: N30.01 Acute cystitis with hematuria (principal); N18.9 Chronic kidney disease, unspecified; I12.9 Hypertensive chronic kidney disease with stage 1 through stage 4 chronic kidney disease, or unspecified chronic kidney disease; E11.22 Type 2 diabetes mellitus with diabetic chronic kidney disease; C67.9 Malignant neoplasm of bladder, unspecified; I48.0 Paroxysmal atrial fibrillation; N40.1 Benign prostatic hyperplasia with lower urinary tract symptoms; D64.9 Anemia, unspecified; N20.0 Calculus of kidney; Z79.01 Long term (current) use of anticoagulants; B95.7 Other staphylococcus as the cause of diseases classified elsewhere; E78.5 Hyperlipidemia, unspecified
CPT/HCPCS: 36415; 51700; 51703; 74420; 80048; 80053; 81001; 82948; 85025; 85610; 85730; 86850; 86900; 87086; 87186; 88305; 88342; 99284; G0378; J0360; J0696; J1100; J1580; J1815; J2001; J2250; J2270; J2405; J7030

== ENCOUNTER → 2020-11-22 | Day surgery (SDC) | payer MEDICARE ==
[2020-11-17 09:24] LABS: BASOPHILS % 0.4 % (0.0-1.0); EOSINOPHILS # (AUTO) 0.3 (0.0-0.4); EOSINOPHILS % 3.3 % (0.0-6.0); HEMATOCRIT 42.4 % (38.2-49.6); HEMOGLOBIN 14.1 g/dL (14.0-18.0); LYMPHOCYTES # (AUTO) 1.2 (1.0-3.2); LYMPHOCYTES % 15.1 % (18.0-39.1); MEAN CORPUSCULAR HEMOGLOBIN 31.4 pg (28-32); MEAN CORPUSCULAR HGB CONC 33.3 g/dL (31-35); MEAN CORPUSCULAR VOLUME 94.4 fL (81-99); MONOCYTES # (AUTO) 0.9 (0.2-0.8); MONOCYTES % 11.4 % (4.4-11.3); NEUTROPHILS # (AUTO) 5.6 (2.1-6.9); NEUTROPHILS % 69.6 % (38.7-80.0); PLATELET COUNT 184 x10e3/uL (140-360); RED BLOOD COUNT 4.49 x10e6/uL (4.3-5.7); RED CELL DISTRIBUTION WIDTH 12.7 % (11.7-14.4)
[~2020-11-22] MED LIST changes: +AMLODIPINE BESY10 MG PO; +ATORVASTATIN CA20 MG PO; +BACTRIM DS TAB1 EACH PO; +CO Q-10200 MG PO; +COREG12.5 MG PO; +ELIQUIS PO; +EPHEDRINE SULFATE INJ 50 MG/ML VIAL ONE; +FLOMAX0.4 MG PO; +FUROSEMIDE40 MG PO; +LIDOCAINE HCL 2% LOCAL INJ 5 ML SDV VIAL INJ ONE; +LISINOPRIL10 MG PO; +METOPROLOL TART50 MG PO; +NOVOLOG 70-30 SC; +PROPOFOL IV EMULSION 10 MG/ML 20 ML VIAL ONE
[2020-11-22 10:50] VITALS: BP 129/62
== END | disposition home or self-care (01) ==
LOC: OR 06:52
PROVIDERS: ATTEND Internal Medicine Gastroenterology
DX: D50.9 Iron deficiency anemia, unspecified (principal); D12.5 Benign neoplasm of sigmoid colon; K25.9 Gastric ulcer, unspecified as acute or chronic, without hemorrhage or perforation; K26.9 Duodenal ulcer, unspecified as acute or chronic, without hemorrhage or perforation; K21.00 Gastro-esophageal reflux disease with esophagitis, without bleeding; K22.70 Barrett's esophagus without dysplasia; K44.9 Diaphragmatic hernia without obstruction or gangrene; Z98.0 Intestinal bypass and anastomosis status; K57.30 Diverticulosis of large intestine without perforation or abscess without bleeding; K64.8 Other hemorrhoids; R19.7 Diarrhea, unspecified; E11.22 Type 2 diabetes mellitus with diabetic chronic kidney disease; I12.9 Hypertensive chronic kidney disease with stage 1 through stage 4 chronic kidney disease, or unspecified chronic kidney disease; N18.9 Chronic kidney disease, unspecified; H91.90 Unspecified hearing loss, unspecified ear; I48.91 Unspecified atrial fibrillation; E78.00 Pure hypercholesterolemia, unspecified; Z01.810 Encounter for preprocedural cardiovascular examination; Z01.812 Encounter for preprocedural laboratory examination; Z20.822 Contact with and (suspected) exposure to COVID-19; Z79.02 Long term (current) use of antithrombotics/antiplatelets; Z79.4 Long term (current) use of insulin; Z68.32 Body mass index [BMI] 32.0-32.9, adult; Z85.51 Personal history of malignant neoplasm of bladder; Z86.73 Personal history of transient ischemic attack (TIA), and cerebral infarction without residual deficits; Z87.891 Personal history of nicotine dependence
CPT/HCPCS: 36415; 43239; 45385; 85025; 88305; 88312; 93005; J2001; J2704; U0002

== ENCOUNTER → 2021-01-23 | Outpatient (CLI) | payer MEDICARE ==
[~2021-01-23] MED LIST changes: -EPHEDRINE SULFATE INJ 50 MG/ML VIAL ONE; -LIDOCAINE HCL 2% LOCAL INJ 5 ML SDV VIAL INJ ONE; -PROPOFOL IV EMULSION 10 MG/ML 20 ML VIAL ONE
== END ==
LOC: US 11:53
PROVIDERS: ATTEND Urology
DX: N13.30 Unspecified hydronephrosis (principal)
CPT/HCPCS: 76770; 76857

== ENCOUNTER → 2021-02-26 | Outpatient (CLI) | payer MEDICARE ==
[~2021-02-26] MED LIST changes: +FUROSEMIDE INJ 10 MG/ML 4 ML VIAL ONE
== END ==
LOC: NM 12:25
PROVIDERS: ATTEND Urology
DX: N13.30 Unspecified hydronephrosis (principal)
CPT/HCPCS: 78708; A9562; J1940

== ENCOUNTER 2025-06-22 08:19 | Inpatient (IN) | payer MEDICARE ==
[2025-06-17 14:37] LABS: BASOPHILS % 0.7 % (0.0-1.0); EOSINOPHILS % 5.0 % (0.0-6.0); LYMPHOCYTES % 19.1 % (18.0-39.1); MONOCYTES % 8.8 % (4.4-11.3); NEUTROPHILS % 66.2 % (38.7-80.0); RED CELL DISTRIBUTION WIDTH 13.8 % (11.7-14.4)
[2025-06-17 15:01] LABS: EST GLOMERULAR FILTRATION RATE 35.0 ML/MIN (>=60)
[~2025-06-22] VITALS: Ht 180.3 cm; Wt 81.6 kg
[~2025-06-22 08:19] MED LIST changes: +ASPIRIN81 MG PO; +BUMETANIDE1 MG PO; -FUROSEMIDE INJ 10 MG/ML 4 ML VIAL ONE; +GLIMEPIRIDE2 MG PO; +JARDIANCE25 MG; +OZEMPIC1 MG/0.71
[2025-06-22] MEDS ORDERED: LIDOCAINE HCL 2% LOCAL INJ 5 ML SDV VIAL INJ ONE (09:04)
[2025-06-22] MEDS ORDERED: PROPOFOL IV EMULSION 10 MG/ML 20 ML VIAL ONE (09:05)
[2025-06-22] MEDS ORDERED: FENTANYL CITRATE/PF 100MCG/2 ML INJ ONE (09:06)
[2025-06-22] MEDS: CEFTRIAXONE 1 GM VIAL ONE (09:17)
[2025-06-22] MEDS: SODIUM CHLORIDE 0.9% 1000ML 1,000 ML ONE (09:17)
[2025-06-22] MEDS: GENTAMICIN 80MG/NS 100 ML 200 ML IV ONE (09:18)
[2025-06-22] MEDS ORDERED: DEXAMETHASONE SOD PHOS INJ 4 MG/ML SDV ONE (11:02)
[2025-06-22] MEDS ORDERED: ONDANSETRON HCL INJ 2MG/ML 2ML 2 MG/ML VIAL ONE (11:02)
[2025-06-22] MEDS ORDERED: GLYCOPYRROLATE INJ 0.2 MG/ML VIAL ONE (11:09)
[2025-06-22] MEDS ORDERED: ACETAMINOPHEN 1000 MG/100 ML 100 ML IV ONE (13:37)
[2025-06-22] MEDS ORDERED: ONDANSETRON HCL INJ 2MG/ML 2ML 2 MG/ML VIAL IV PRN (13:45)
[2025-06-22] MEDS ORDERED: ACETAMINOPHEN/CODEINE 300MG - 30MG TAB PO PRN (13:45)
[2025-06-22] MEDS ORDERED: DIPHENHYDRAMINE HCL 25 MG CAP PO PRN (13:45)
[2025-06-22] MEDS ORDERED: ACETAMINOPHEN 1000 MG/100 ML IV PRN (13:45)
[2025-06-22] MEDS: FENTANYL CITRATE/PF 100MCG/2 ML INJ ONE ×2 (13:46→14:24)
[2025-06-22 14:34] VITALS: BP 146/64; PULSE 55; RESP 20; O2SAT 95
[2025-06-22 14:40] LABS: BASOPHILS % 0.3 % (0.0-1.0); EOSINOPHILS % 1.6 % (0.0-6.0); LYMPHOCYTES % 10.2 % (18.0-39.1); MONOCYTES % 3.0 % (4.4-11.3); NEUTROPHILS % 84.4 % (38.7-80.0); RED CELL DISTRIBUTION WIDTH 13.8 % (11.7-14.4)
[2025-06-22 15:01] LABS: EST GLOMERULAR FILTRATION RATE 38.0 ML/MIN (>=60)
[2025-06-22 15:39] VITALS: PULSE 51; RESP 16; O2SAT 94
[2025-06-22] MEDS: SODIUM CHLORIDE 0.9% 1000ML 1,000 ML IV SCH (16:01)
[2025-06-22] MEDS: SENNA-S TABLET PO SCH (17:36)
[2025-06-22 20:00] VITALS: BP 146/64; PULSE 62; RESP 18; TEMP 97.5; O2SAT 99
[2025-06-22 21:00] VITALS: BP 146/64; PULSE 62; RESP 18; TEMP 97.5; O2SAT 99
[2025-06-22 23:49] VITALS: BP 135/59; PULSE 62; RESP 18; TEMP 97.7; O2SAT 97
[2025-06-23] VITALS (7 sets, daily range): BP systolic 123–141; BP diastolic 58–69; PULSE 61–72; RESP 16–18; TEMP 97.6–98.1; O2SAT 95–98
[2025-06-23] MEDS: PHENAZOPYRIDINE HCL 100 MG TAB PO PRN (08:24)
[2025-06-23 08:32] LABS: BASOPHILS % 0.3 % (0.0-1.0); EOSINOPHILS % 0.1 % (0.0-6.0); LYMPHOCYTES % 7.6 % (18.0-39.1); MONOCYTES % 4.6 % (4.4-11.3); NEUTROPHILS % 86.9 % (38.7-80.0); RED CELL DISTRIBUTION WIDTH 13.7 % (11.7-14.4)
[2025-06-23 09:01] LABS: EST GLOMERULAR FILTRATION RATE 41.0 ML/MIN (>=60)
[2025-06-23] MEDS ORDERED: ACETAMINOPHEN 325 MG TAB PO PRN (23:45)
[2025-06-23] MEDS ORDERED: HYDRALAZINE HCL 20 MG/ML VIAL IV PRN (23:45)
[2025-06-23] MEDS: CARVEDILOL 12.5 MG TAB PO SCH (23:45)
[2025-06-23] MEDS: AMLODIPINE BESYLATE 10 MG TAB PO SCH (23:45)
[2025-06-24] VITALS (10 sets, daily range): BP systolic 132–159; BP diastolic 59–78; PULSE 57–74; RESP 16–21; TEMP 97.7–98.9; O2SAT 95–98
[2025-06-24] MEDS ORDERED: DEXTROSE 50% SYRINGE 50 ML IV PRN
[2025-06-24] MEDS: MAGNESIUM SULFATE 2GM/50ML IV ONE (01:02)
[2025-06-24] MEDS: SODIUM BICARBONATE 8.4% SYRING 50 ML in SODIUM CHLORIDE 0.45% 1,000 ML IV SCH (02:06)
[2025-06-24 06:07] LABS: BASOPHILS % 0.4 % (0.0-1.0); EOSINOPHILS % 1.5 % (0.0-6.0); LYMPHOCYTES % 8.2 % (18.0-39.1); MONOCYTES % 6.6 % (4.4-11.3); NEUTROPHILS % 82.8 % (38.7-80.0); RED CELL DISTRIBUTION WIDTH 13.8 % (11.7-14.4)
[2025-06-24 06:54] LABS: EST GLOMERULAR FILTRATION RATE 40.0 ML/MIN (>=60)
[2025-06-24 07:08] LABS: PHOSPHORUS 2.6 MG/DL (2.3-4.7)
[2025-06-24] MEDS: INSULIN LISPRO 100 UNIT/1 ML 3ML VIAL SQ SCH (07:30)
[2025-06-24] MEDS: GABAPENTIN 300 MG CAP PO SCH (09:00)
[2025-06-24] MEDS: TAMSULOSIN HCL 0.4 MG CAP PO SCH (09:00)
[2025-06-24] MEDS: SIMVASTATIN 20 MG TAB PO SCH (21:00)
[2025-06-24] MEDS ORDERED: SODIUM BICARBONATE 8.4% SYRING 0 ML ONE (21:34)
[2025-06-25] VITALS (12 sets, daily range): BP systolic 130–157; BP diastolic 49–73; PULSE 54–97; RESP 16–20; TEMP 97.4–99.1; O2SAT 95–98
[2025-06-25 07:19] LABS: BASOPHILS % 0.4 % (0.0-1.0); EOSINOPHILS % 1.9 % (0.0-6.0); LYMPHOCYTES % 10.8 % (18.0-39.1); MONOCYTES % 9.9 % (4.4-11.3); NEUTROPHILS % 76.5 % (38.7-80.0); RED CELL DISTRIBUTION WIDTH 13.6 % (11.7-14.4)
[2025-06-25 08:19] LABS: EST GLOMERULAR FILTRATION RATE 49.0 ML/MIN (>=60)
[2025-06-26] VITALS (8 sets, daily range): BP systolic 123–148; BP diastolic 62–69; PULSE 55–77; RESP 16–19; TEMP 97.7–98.3; O2SAT 96–99
[2025-06-26 08:52] LABS: BASOPHILS % 0.4 % (0.0-1.0); EOSINOPHILS % 3.5 % (0.0-6.0); LYMPHOCYTES % 10.3 % (18.0-39.1); MONOCYTES % 8.8 % (4.4-11.3); NEUTROPHILS % 76.3 % (38.7-80.0); RED CELL DISTRIBUTION WIDTH 13.4 % (11.7-14.4)
[2025-06-26 09:06] LABS: EST GLOMERULAR FILTRATION RATE 46.0 ML/MIN (>=60)
[2025-06-26] MEDS: SODIUM BICARBONATE 8.4% VIAL 50 ML in SODIUM CHLORIDE 0.45% 1,000 ML IV SCH (12:05)
== END 2025-06-26 16:54 | disposition home or self-care (01) | DRG 713 ==
LOC: OR 08:19 → PACU V 13:43 → IMCU 15:13 → MED/SURG 06-23 20:18
PROVIDERS: ADMIT Urology; ATTEND Urology
PROC: 0T7D7ZZ Dilation of Urethra, Via Natural or Artificial Opening (ICD-10-PCS; 2025-06-22)
PROC: 0T9B70Z Drainage of Bladder with Drainage Device, Via Natural or Artificial Opening (ICD-10-PCS; 2025-06-22)
PROC: BT141ZZ Fluoroscopy of Kidneys, Ureters and Bladder using Low Osmolar Contrast (ICD-10-PCS; 2025-06-22)
PROC: 0VB08ZZ Excision of Prostate, Via Natural or Artificial Opening Endoscopic (ICD-10-PCS; principal; 2025-06-22 10:50)
DX: N40.1 Benign prostatic hyperplasia with lower urinary tract symptoms (principal); N13.8 Other obstructive and reflux uropathy; R31.0 Gross hematuria; E11.42 Type 2 diabetes mellitus with diabetic polyneuropathy; I10 Essential (primary) hypertension; E78.5 Hyperlipidemia, unspecified; N35.912 Unspecified bulbous urethral stricture, male; Z79.82 Long term (current) use of aspirin; Z79.84 Long term (current) use of oral hypoglycemic drugs; Z79.85 Long-term (current) use of injectable non-insulin antidiabetic drugs
CPT/HCPCS: 36415; 71046; 74420; 80048; 82948; 83735; 84100; 85025; 88305; 93005; 94799; C1758; J0696; J1100; J1580; J2003; J2405; J3475; J7030